=== PATIENT | female | born 1955 ===

== ENCOUNTER 2023-02-20 15:03 | Outpatient (AMB) | payer MEDICARE, MEDICAID, SELFPAY ==
--- NOTE | 2023-02-20 15:05 | MHC.OFFVIS ---
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 Pt was diagnosed with SERENA in 2015 and started using CPAP. She is on APAP [id number]. Pt reports she uses CPAP nightly and more than 4hrs. She is followed by [facility] sleep medicine. Pt reports she sleeps well with the current CPAP and the setting is good, too. Pt reports less snoring, and having rested sleep with CPAP for 10-12 hrs. However, her CPAP stopped transmitting data since August, and can't have compliance. She has not received supplies for a long time. She uses nasal mask and having frequent nasal infection. Pt wants to try other options to treat her sleep apnea. Pt had tonsil removed, not evaluated by dentist for mandibular device. Pt is not interested in [facility]. PFSH Family History (Updated 02/20/23 @ 15:27 by Ramandeep Melendrez) Mother Cancer Father Heart abnormality Social History (Updated 02/20/23 @ 15:27 by Ramandeep Melendrez) Household Members: Other Housing: Apartment Alcohol intake: current Patient Tobacco Use Status: Never used Tobacco Use of substances other than those prescribed or required for medical reasons: No Review of Systems Const All systems reviewed & are unremarkable except as noted in HPI and below ENT Reports Normal hearing present Neuro Reports Normal hearing present Physical Exam Vital Signs: BMI result Body Mass Index 50.3 Const General: cooperative Nutritional Appearance: obese Orientation/consciousness: patient oriented x3 Limitations: ambulation with walker Neck Neck: Yes full ROM and Yes supple Resp Effort & Inspection: normal respiratory effort and able to speak in complete sentences Neuro General: patient oriented x3 and moves all extremities Cranial nerves: Yes Bilaterally intact EOM present, Yes Normal facial strength present, Yes Midline tongue present, Yes Symmetric palate elevation present, Yes Normal hearing present, Yes Ability to bilaterally rotate head present and Yes Ability to bilaterally elevate shoulders present Cognition (Neuro): normal cognition Motor exam (neuro): 5/5 motor strength present throughout, Pronator motor function not present and no tremor noted Psych Appearance: grossly normal Mental Status: mental status grossly normal Affect: normal affect Attitude: cooperative Assessment & Plan Assessment & Plan (1) Snoring: Code(s): R06.83 - Snoring (2) SERENA on CPAP: Code(s): G47.33 - Obstructive sleep apnea (adult) (pediatric) Plan New CPAP supply prescription with [facility] walk in clinic hour information given to patient. Will consider repeat sleep study if she needs recent sleep study to have supplies. Refer patient to ENT for different treatment option for SERENA. Orders: Referrals Ear/Nose/Throat Referral G47.33 - Obstructive sleep apnea (adult) (pediatric), R06.83 - Snoring Coding Level of Care Code New Pt Level 3 (01034) Diagnoses Snoring R06.83 SERENA on CPAP G47.33
[2023-02-20 15:07] VITALS: BMI 50.3
== END 2023-02-20 15:59 | disposition home or self-care (01) ==
PROVIDERS: PCP Nurse Practitioner Adult Health; Visit Provider Nurse Practitioner Family
DX: R06.83 Snoring (principal); G47.33 Obstructive sleep apnea (adult) (pediatric)
CPT/HCPCS: 99203

== ENCOUNTER → 2023-02-20 15:03 | Outpatient (BNVA) | payer MEDICARE, MEDICAID, SELFPAY | PROVIDERS: PCP Nurse Practitioner Adult Health; Visit Provider Nurse Practitioner Family ==